=== PATIENT | male | born 1970 | race Two or more races ===

== ENCOUNTER → 2020-03-13 | Outpatient (CLI) | payer OTHER ==
[~2020-03-13] VITALS: Ht 162.6 cm; Wt 74.8 kg
[2020-03-13 08:00] VITALS: BP 150/78
[2020-03-13 09:08] LABS: HEMATOCRIT 21.1 % (39.0-53.0); HEMOGLOBIN 7.1 g/dL (13.0-17.5)
[2020-03-13 09:39] VITALS: BP 134/74
[2020-03-13 10:40] VITALS: BP 139/71
[2020-03-13 11:40] VITALS: BP 148/78
[2020-03-13 12:40] VITALS: BP 156/80
[2020-03-13 13:03] VITALS: BP 151/79
== END | disposition home or self-care (01) ==
LOC: OPS 07:52
PROVIDERS: ATTEND Nurse Practitioner Adult Health
DX: D64.9 Anemia, unspecified (principal)
CPT/HCPCS: 36415; 36430; 85014; 85018; 86850; 86900; 86901; 86920; P9016